=== PATIENT | female | born 1990 | race Caucasian/White ===

== ENCOUNTER 2016-07-25 21:47 | Emergency (ER) | payer OTHER ==
[~2016-07-25 21:47] MED LIST: ALBUTEROL HFA INH; ALBUTEROL17 GM INH; ALBUTEROL20 ml INH; ALLEGRA PO; LO/OVRAL-281 TAB PO; NO MEDICATIONS; PREDNISONE PO; ZITHROMAX PO
[2016-07-25] MEDS ORDERED: ZOVIRAX200 MG (22:08)
== END 2016-07-26 | disposition home or self-care (01) ==
LOC: SED 21:47
DX: J02.9 Acute pharyngitis, unspecified (principal); F17.210 Nicotine dependence, cigarettes, uncomplicated
CPT/HCPCS: 87651; 99282